=== PATIENT | male | born 1975 | race Caucasian/White ===

== ENCOUNTER → 2022-01-16 15:55 | Outpatient (CLI) | payer BC, SELFPAY ==
--- NOTE | ~2022-01-16 | XR_ITS ---
EXAMINATION: XR chest 2V DATE: 01/16/2022 16:05 INDICATION: Chest pain TECHNIQUE: PA and lateral views of the chest were obtained. COMPARISON: None FINDINGS: The lungs are clear with no focal airspace opacities, pulmonary edema, pleural effusion or pneumothor ax. The cardiomediastinal silhouette is normal. Mild thoracic spondylosis. IMPRESSION: 1. No acute cardiopulmonary disease. Reviewed, dictated and finalized at location B.
== END ==
PROVIDERS: PCP Family Medicine; Visit Provider Family Medicine
DX: R07.89 Other chest pain (principal); M47.814 Spondylosis without myelopathy or radiculopathy, thoracic region
CPT/HCPCS: 71046

== ENCOUNTER → 2022-01-31 08:01 | Outpatient (CLI) | payer BC, SELFPAY ==
--- NOTE | ~2022-01-31 | US_ITS ---
EXAMINATION: US aorta DATE: 01/31/2022 09:16 CDT INDICATION: Arrhythmias. Atrial fibrillation. Evaluate for abdominal aortic aneurysm TECHNIQUE: Grayscale, color Doppler, and pulsed Doppler images of the aorta and common iliac arteries were obtained. COMPARISON: None. FINDINGS: The proximal aorta measures 2.3 cm greatest sagittal dimension. The mid aorta measures 2 cm greatest sagittal dimension. The distal aorta measures 1.8 cm greatest sagittal dimension. The right common in ternal iliac artery measures 1.1 cm. The left common iliac artery measures 1.1 cm. IMPRESSION: 1. Normal caliber aorta without evidence for aneurysm. Reviewed, dictated and finalized at location D.
== END ==
PROVIDERS: PCP Family Medicine; Visit Provider Family Medicine
DX: R09.89 Other specified symptoms and signs involving the circulatory and respiratory systems (principal); R07.89 Other chest pain; R00.2 Palpitations
CPT/HCPCS: 76775

== ENCOUNTER → 2022-02-07 11:50 | Outpatient (CLI) | payer BC, SELFPAY ==
--- NOTE | ~2022-02-07 | US_ITS ---
EXAMINATION: US thyroid DATE: 02/07/2022 12:08 INDICATION: Thyrotoxicosis, unspecified without thyrotoxic crisis. TECHNIQUE: Multiple ultrasound images of the thyroid were obtained. COMPARISON: None. FINDINGS: The right thyroid lobe measures 5.4 x 1.6 x 1.7 cm. The left thyroid lobe measures 5.2 x 1.5 x 1.3 c m. There is normal echotexture and echogenicity throughout the thyroid gland. No discrete nodules id entified. Normal vascular flow is present. IMPRESSION: 1. Normal thyroid. Reviewed, dictated and finalized at location B. IMPRESSION: 1. Normal thyroid.
== END ==
PROVIDERS: PCP Family Medicine; Visit Provider Family Medicine
DX: E05.90 Thyrotoxicosis, unspecified without thyrotoxic crisis or storm (principal)
CPT/HCPCS: 76536

== ENCOUNTER 2022-11-26 15:03 | Outpatient (CLI) | payer BC, SELFPAY ==
--- NOTE | ~2022-11-26 | XR_ITS ---
EXAMINATION: XR lumbar spine 2-3V DATE: 11/26/2022 15:20 INDICATION: Low back injury. Low back pain. TECHNIQUE: 3 views of lumbar spine were obtained. COMPARISON: None. FINDINGS: Bone alignment is normal. Vertebral body heights are normal. There is mildly decreased disc height at L5-S1. There is multilevel mild facet joint osteoarthritis. IMPRESSION: 1. Mild lumbar spondylosis. Reviewed, dictated and finalized at location A. IMPRESSION: 1. Mild lumbar spondylosis.
== END 2022-11-26 15:04 ==
PROVIDERS: PCP Family Medicine; Visit Provider Nurse Practitioner
DX: M47.896 Other spondylosis, lumbar region (principal)
CPT/HCPCS: 72100

== ENCOUNTER → 2023-02-26 14:36 | Outpatient (CLI) | payer BC, SELFPAY ==
--- NOTE | ~2023-02-26 | XR_ITS ---
Clinical Indication: Chest fullness PA and lateral views of the chest: Comparison: 01/16/2022 Findings: The lungs are clear, without evidence of focal consolidation or pleural effusion. Cardiome diastinal silhouette is within normal limits. Bones and soft tissues are unremarkable. Impression: Normal chest. Reviewed, dictated and finalized at [facility]. Impression: Normal chest.
== END ==
PROVIDERS: PCP Family Medicine; Visit Provider Family Medicine
DX: R06.83 Snoring (principal)
CPT/HCPCS: 71046

== ENCOUNTER 2023-04-06 09:10 | Outpatient (CLI) | payer BC, SELFPAY ==
--- NOTE | 2023-04-13 20:06 | WPDHOMESLEEP ---
Sleep Study - Home Unattended Date of Study: 04/06/23 Ordering Provider: Yolanda Yee MD Interpreting Provider: Delaney Aragon, DO Home Sleep Study Type: Apnea Link Air Height: 1.85 m Weight: 98.43 kg Body Mass Index: 28.6 Neck Circumference (inches): 15.5 [place]: 8 Reason for Sleep Study Paroxysmal atrial fibrillation Sleep History The patient is a 47-year-old male with paroxysmal atrial fibrillation, GERD and hyperthyroidism that had a sleep study by his primary care for evaluation of sleep apnea. The patient denies awakening from sleep short of breath. He occasionally awakens at night with heartburn, belching or cough. He occasionally snores loudly enough that others complain. He occasionally has trouble sleeping when he has a cold. He denies waking up gasping for air throughout the night. He denies having breathing problems at night observed by himself or others. He rarely sweats excessively at night. He occasionally has heart palpitations or irregular heartbeats during the night. He occasionally falls asleep during the day but never while driving. He denies sleep paralysis, cataplexy and hypnagogic / hypnopompic hallucinations. He denies having trouble at school or work due to sleepiness. He denies feeling afraid of going to sleep. He rarely has nightmares. He occasionally remembers his dreams. He occasionally has thoughts racing through his mind. He rarely feels sad, depressed and anxious. He denies having muscular tension. He rarely notices parts of his body jerk. He rarely kicks during the night. He denies grinding his teeth during sleep and rarely awakens with morning jaw pain. He is occasionally bothered by pain during the day and frequently awakened by pain during the night. He frequently wakes up feeling stiff in the morning. He occasionally wakes up with sore or achy muscles. He frequently wakes up with pain in the neck, spine or other joints. The patient goes to bed between 10 to 10:30 p.m. on both weekdays and weekends. It takes him 30-60 minutes to fall asleep. He wakes up 4-5 times throughout the night to reposition and is able to fall back asleep within 5 minutes. He wakes up at 5:40 a.m. on weekdays and at 7:00 a.m. on the weekends. He typically gets 6 hours of sleep per night. He will stay in bed for 30 minutes after waking up in the morning. He currently lives with his and 2 children. He denies consuming any caffeinated beverages within 2 hours of bedtime. He denies engaging in physical exercise before bedtime. He will watch television before falling asleep. He will occasionally take naps in the afternoon or the evening and they are occasionally refreshing. He denies consuming any caffeinated beverages throughout the day. He denies tobacco, alcohol and recreational drug use. [facility] Past Medical History Medical History Actinic keratoses Acute prostatitis Inguinal hernia of right side without obstruction or gangrene Palpitations with regular cardiac rhythm Social History Social History Smoking status: Never smoker Lack of Transportation: No Lack of Food: Never True Current Housing: I Have Housing Concerned About Future Housing: No Difficulty Paying Gas/Electric Bills: No Difficulty Paying for Meds: No Currently Unemployed: No Education: High School Diploma/GED Difficulty w/ Childcare or Family Care: No Medications Home Medications Medication Instructions Recorded Confirmed Type aspirin 325 mg tablet,delayed 325 mg PO DAILY 04/19/20 02/26/23 History release atenolol 50 mg tablet 50 mg PO DAILY 04/19/20 02/26/23 History omeprazole 40 mg capsule,delayed 40 mg PO DAILY #90 caps 01/23/23 02/26/23 Rx release methimazole 5 mg tablet 5 mg PO DAILY #90 tabs 02/26/23 02/26/23 Rx Sleep Procedure This test was performed us
[2023-04-14 12:44] VITALS: BMI 28.6
== END 2023-04-07 12:45 | disposition home or self-care (01) ==
LOC: ANHCSM 09:11
PROVIDERS: PCP Family Medicine; Visit Provider Family Medicine
DX: G47.10 Hypersomnia, unspecified (principal); I48.91 Unspecified atrial fibrillation; G47.9 Sleep disorder, unspecified
CPT/HCPCS: 95806

== ENCOUNTER 2025-06-07 03:23 | Day surgery (SDC) | payer BC, SELFPAY ==
[2025-06-05 13:14] VITALS: BMI 28.2
--- NOTE | 2025-06-07 07:12 | P.PNAN_ITS ---
Anes - Initial Pre Proc Eval Procedure: Operation Date: 06/07/25 13:00 Proposed Procedures p EGD & Screening Colonoscopy - Bradley Saleem MD Date/Time: 06/07/25 07:12 Surgeon: Bradley Saleem MD Pre Op Diagnosis: Encounter for screening for malignant neoplasm of Patient Data Age: 49 Gender: M Height: 1.85 m Weight: 97 kg Allergies Allergy/AdvReac Type Severity Reaction Status Date / Time diphtheria,pertussis Allergy Intermediate unknown Verified 06/07/25 11:24 (acellular),te (From Adacel(Tdap Adolesn/Adult)(PF)) Home Medications ?Medication ?Instructions ?Recorded ?Confirmed ?Type atenolol 50 mg tablet 50 mg PO DAILY 04/19/2005/24 History omeprazole 40 mg capsule,delayed 40 mg PO DAILY #90 ca ps 03/06/25 06/07/25 Rx release Patient hx anesthesia problems: none Family hx anesthesia problems: none Results Review: All pre-operative results and documents have been reviewed as part of the pre- operative evaluation. [facility] Past Medical History Medical History (Updated 06/07/25 @ 07:12 by Seven Cope DO) Atrial fibrillation Low back strain Lumbar back pain Actinic keratoses Inguinal hernia of right side without obstruction or gangrene Acute prostatitis Palpitations with regular cardiac rhythm Social History Social History (Updated 06/01/25 @ 15:34 by Kasey Mccullough MA) Smoking status: Never smoker Alcohol intake: never Substance use: never Substance use type: does not use Do You Feel Safe in your Home?: Yes Lack of Transportation: No Lack of Food: Never True Current Housing: I Have Housing Concerned About Future Housing: No Difficulty Paying Gas/Electric Bills: No Difficulty Paying for Meds: No Currently Unemployed: No Education: High School Diploma/GED Difficulty w/ Childcare or Family Care: No Spiritual care concerns: No Anes - Eval Final PreProcedure Day of Procedure 06/07/25 07:12 Patient weight: overweight Heart: regular rate and rhythm Lungs: clear to auscultation Airway: Mallampati scale class II Neurological: alert and oriented Last oral intake: >/= 8 hours ASA classification: III Emergent: no Anesthetic plan: proceed Anesthesia type and monitoring: general GIVS and standard monitoring Results Review: All pre-operative results and documents have been reviewed as part of the pre- operative evaluation. Informed Consent: The patient's anesthetic plan and its attendant risks and benefits were discussed with the patient/family/POA. Questions were solicited and answers provided to the satisfaction of the patient/family/POA.
[2025-06-07 11:25] VITALS: BP 127/87; PULSE 61; RESP 16; TEMP 36.3; O2SAT 99
[2025-06-07] MEDS: LACTATED RINGERS 1,000 ML 150 ML IV CONT (11:40)
--- NOTE | 2025-06-07 12:16 | PM.HPGS ---
History of Present Illness History of Present Illness Consent: Risks, benefits, and alternatives have been discussed and questions answered. Patient agrees to proceed with procedure. Chief complaint: Encounter for screening for malignant neoplasm of Narrative: Brown Small is a 49 year old male with gerd on omeprazole for few years, here for first egd and also screening colonoscopy Review of Systems Review of Systems: All systems reviewed & are unremarkable except as noted in HPI and below PMFSH Past Medical History Medical History (Updated 06/07/25 @ 12:17 by Bradley Saleem MD) Colon cancer screening Atrial fibrillation Low back strain Lumbar back pain Actinic keratoses Inguinal hernia of right side without obstruction or gangrene Acute prostatitis Palpitations with regular cardiac rhythm Social History Social History (Updated 06/01/25 @ 15:34 by Kasey Mccullough MA) Smoking status: Never smoker Alcohol intake: never Substance use: never Substance use type: does not use Do You Feel Safe in your Home?: Yes Lack of Transportation: No Lack of Food: Never True Current Housing: I Have Housing Concerned About Future Housing: No Difficulty Paying Gas/Electric Bills: No Difficulty Paying for Meds: No Currently Unemployed: No Education: High School Diploma/GED Difficulty w/ Childcare or Family Care: No Spiritual care concerns: No Meds Home Medications and Allergies Home Medications ?Medication ?Instructions ?Recorded ?Confirmed ?Type atenolol 50 mg tablet 50 mg PO DAILY 04/19/20 06/07/25 History omeprazole 40 mg capsule,delayed 40 mg PO DAILY #90 caps 03/06/25 06/07/25 Rx release Allergies Allergy/AdvReac Type Severity Reaction Status Date / Time diphtheria,pertussis Allergy Intermediate unknown Verified 06/07/25 11:24 (acellular),te (From Adacel(Tdap Adolesn/Adult)(PF)) Vital Signs Vital Signs - 24 hr 06/07/25 11:25 Temperature 97.4 F L Pulse Rate 61 Respiratory Rate 16 Blood Pressure 127/87 Pulse Oximetry 99 Oxygen Delivery Room Air Exam Const: General: comfortable and no acute distress HENMT: Face/Nose/Sinus: Normal nares present Eyes: General: appearance normal, both eyes and all related structures Neck: Neck: no JVD Resp: Auscultation: clear to auscultation bilaterally Cardio: Rate: regular rate Rhythm: regular rhythm GI: Inspection: non-distended GI Palp: Yes Soft to palpation Skin: General skin exam: normal color Extrem: General: normal to inspection Psych: Mental Status: mental status grossly normal Assessment and Plan Assessment and plan (1) GERD with esophagitis: Qualifiers: Esophagitis bleeding: without hemorrhage Qualified Code(s): K21.00 - Gastro-esophageal reflux disease with esophagitis, without bleeding Code(s): K21.0 - Gastro-esophageal reflux disease with esophagitis Status: Acute Assessment and Plan: egd (2) Colon cancer screening: Code(s): Z12.11 - Encounter for screening for malignant neoplasm of colon Status: Acute Assessment and Plan: colonoscopy
--- NOTE | 2025-06-07 12:20 | S_PTH ---
PATIENT: Brown Small LOC: [facility]#:[id number] AGE/SX: 49/M ROOM: RE06/07/[address]: Bradley Saleem MD : 1975 BED: DIS: 06/07/2025 SPEC #: [id number] RECD: 06/07/25 13:01 STATUS: CINDY RESherri #: [id number] OLIVERIO: 06/07/25 12:[address]: Bradley Saleem DEPT: [facility] Surgical RECD BY: Edgar Carrera ENTERED: 06/07/25 13:02 SP TYPE: Surgical OTHR DR: Yolanda Yee MD Tissues: A - Esophageal Biopsy B - Gastric Biopsy C - Colon Polypectomy Procedures: Hematoxylin and Eosin Stain Gross and Microscopic Level 4
--- NOTE | 2025-06-07 12:25 | SUR.OPER ---
EGD:[id number] Colon: [id number]
[2025-06-07 12:36] VITALS: BP 94/60; PULSE 61; RESP 15; O2SAT 97
[2025-06-07 12:46] VITALS: BP 98/62; PULSE 58; RESP 14; O2SAT 97
[2025-06-07 12:56] VITALS: BP 102/69; PULSE 60; RESP 14; O2SAT 100
== END 2025-06-07 13:18 | disposition home or self-care (01) ==
PROVIDERS: PCP Family Medicine; Referring Provider Family Medicine; Visit Provider Internal Medicine Gastroenterology
PROC: 0DJ08ZZ Inspection of Upper Intestinal Tract, Via Natural or Artificial Opening Endoscopic (ICD-10-PCS; CPT 45378; principal; 2025-06-07 13:00)
DX: Z12.11 Encounter for screening for malignant neoplasm of colon (principal); K21.9 Gastro-esophageal reflux disease without esophagitis; K63.5 Polyp of colon; K64.8 Other hemorrhoids; K57.30 Diverticulosis of large intestine without perforation or abscess without bleeding; I48.91 Unspecified atrial fibrillation; L57.0 Actinic keratosis; Z87.19 Personal history of other diseases of the digestive system
CPT/HCPCS: 43239; 45385; 88305; J2003; J2704; J7120